=== PATIENT | female | born 1955 | race Caucasian/White ===

== ENCOUNTER 2017-01-06 09:02 | Inpatient (IN) | payer OTHER ==
[~2017-01-06 09:02] MED LIST: ALBUTEROL SULF8.5 G1 IH; ALLEGRA-D1 TAB.SR PO; ASPIRIN81 M1 PO; BENADRYL50 MG PO; BIOTIN5000 MCG PO; FIBER TAB PO; FLUOXETINE HCL10 M2 PO; IBUPROFEN PO; IBUPROFEN200 M3 PO; MAGNESIUM250 M1 PO; MELATONIN10 M4 PO; MIRALAX17 G1 PO; MULTIVITAMINS1 EAC6 PO; NORCO 7.5/325 T1 TAB PO; OMEPRAZOLE20 M3 PO; PEPCID PO; TRIAMTERENE-HC1 EAC3 PO; TUMS PO; TYLENOL EXTRA500 M1 PO; TYLENOL PO; VENTOLIN HFA18 G2 PO; VITAMIN B COMP1 EAC1 PO; VITAMIN D31000 UNI3 PO
[2017-01-06 09:50] LABS: INR 0.9 INR (0.9-1.1); PROTHROMBIN TIME 10.7 SECONDS (9.0-13.6)
[2017-01-07] MEDS ORDERED: ASPIRIN325 M3 PO (11:38)
[2017-01-07] MEDS ORDERED: NORCO 5-325 TA1 EACH PO (11:39)
[2017-05-12] MEDS ORDERED: FISH OIL 11000 MG/CA PO (09:28)
[2017-05-12] MEDS ORDERED: ASPIRIN81 M1 PO (09:28)
== END 2017-01-07 12:45 | DRG 483 ==
LOC: SHSB 09:02 → ORE 11:58 → PACU 13:47 → 5EB 15:22
PROVIDERS: ADMIT Orthopaedic Surgery Sports Medicine
PROC: 0RRJ0JZ Replacement of Right Shoulder Joint with Synthetic Substitute, Open Approach (ICD-10-PCS; principal; 2017-01-06)
DX: M19.011 Primary osteoarthritis, right shoulder (principal); F32.0 Major depressive disorder, single episode, mild; Z68.43 Body mass index [BMI] 50.0-59.9, adult; E66.01 Morbid (severe) obesity due to excess calories; K21.9 Gastro-esophageal reflux disease without esophagitis; M54.16 Radiculopathy, lumbar region; M17.11 Unilateral primary osteoarthritis, right knee; J45.20 Mild intermittent asthma, uncomplicated
CPT/HCPCS: C1713; G8987-GO-CK; G8988-GO-CJ; G8989-GO-CK; J0171; J0690; J1170; J1885; J2270; J2405; J2795; J3010